=== PATIENT | female | born 1980 | race African-American/Black ===

== ENCOUNTER 2018-08-25 23:55 | Emergency (ER) | payer MEDICAID ==
[~2018-08-25] VITALS: Ht 167.6 cm; Wt 77.0 kg
[~2018-08-25 23:55] MED LIST: DOXYCYCLINE
[2018-08-26] MEDS ORDERED: IBUPROFEN 600MG TABLET PO ONE (00:30)
[2018-08-26 02:21] LABS: CLARITY URINE CLEAR (CLEAR); COLOR URINE YELLOW (YELLOW); KETONES URINE 3+ (NEGATIVE); LEUKOCYTE ESTERASE URINE NEGATIVE (NEGATIVE); NITRITE URINE NEGATIVE (NEGATIVE); OCCULT BLOOD URINE NEGATIVE (NEGATIVE); PH URINE 8.5 (4.5-8.0); PROTEIN URINE TRACE (NEGATIVE); SPECIFIC GRAVITY URINE 1.026 (1.005-1.030)
[2018-08-26] MEDS ORDERED: AZITHROMYCIN 500 MG TABLET PO SCH (02:45)
[2018-08-26] MEDS ORDERED: THROAT LOZENGES-BENZOCAINE/MENTH/CETYLPYRD CL LOZENGES MM PRN (02:45)
[2018-08-26 02:50] VITALS: BP 113/69
== END 2018-08-26 03:00 | disposition home or self-care (01) ==
LOC: ER 23:55
DX: J03.00 Acute streptococcal tonsillitis, unspecified (principal); J35.01 Chronic tonsillitis; F12.10 Cannabis abuse, uncomplicated; Z98.890 Other specified postprocedural states; Z79.899 Other long term (current) drug therapy
CPT/HCPCS: 81025; 87804; 99283